=== PATIENT | female | born 1945 | race Caucasian/White ===

== ENCOUNTER 2017-09-21 16:09 | Emergency (ER) | payer MEDICARE ==
[~2017-09-21] VITALS: Ht 175.3 cm; Wt 68.2 kg
[2017-09-21 16:11] VITALS: Ht 175.3 cm; Wt 68.2 kg
[2017-09-21 16:35] VITALS: BP 174/91
[2017-09-21 16:41] LABS: BASOPHILS 0.6 % (0-2); EOSINOPHILS 4.8 % (0-7); HEMATOCRIT 30.2 % (36.0-48.0); HEMOGLOBIN 10.1 g/dL (12-16); IMMATURE GRANULOCYTES 0.6 % (0-5); LYMPHOCYTES 28.7 % (15-50); MCH 30.6 pg (26.0-34.0); MCHC 33.4 g/dL (31.0-37.0); MCV 91.5 fL (80.0-100.0); MEAN PLATELET VOLUME 9.5 fL (7.4-10.4); MONOCYTES 16.2 % (2-11); NEUTROPHILS 49.1 % (40-80); PLATELET COUNT 118 10x3/uL (130-400); RDW 19.6 % (11.5-14.5)
[2017-09-21 17:00] LABS: APTT 27.6 SECONDS (22.8-39.4); INR 0.99 (0.85-1.17); PROTIME 12.7 SECONDS (11.6-15.0)
[2017-09-21 17:08] LABS: D-DIMER-QUANTITATIVE 8.35 ug/mLFEU (0.20-0.54)
[2017-09-21 17:14] VITALS: BP 158/91
[2017-09-21 17:21] LABS: ALBUMIN 2.9 g/dL (3.4-5.0); ALKALINE PHOSPHATASE 109 U/L (46-116); ALT (SGPT) 21 U/L (10-68); CALC OSMOLALITY 283 mosm/kg (275-300); CALCIUM 7.9 mg/dL (8.5-10.1); CARBON DIOXIDE 27.8 mmol/L (21.0-32.0); CHLORIDE - SERUM 106 mmol/L (98-107); CREATININE - SERUM 1.1 mg/dL (0.6-1.3); GLUCOSE 109 mg/dL (74-106); POTASSIUM - SERUM 3.2 mmol/L (3.5-5.1); PROTEIN - SERUM 6.3 g/dL (6.4-8.2); SODIUM 141 mmol/L (136-145); UREA NITROGEN 17 mg/dL (7-18); eGFR NON AFRICAN AMERICAN 52 mL/min (90-120)
[2017-09-21 17:42] LABS: CKMB 0.5 U/L (0.0-3.6); CREATINE KINASE 51 UL (21-215); MAGNESIUM - SERUM 1.8 mg/dL (1.8-2.4)
[2017-09-21 17:45] LABS: TROPONIN-I < 0.017 ng/mL (0.000-0.060)
[2017-09-21 21:30] VITALS: BP 144/77
[2017-09-21 22:18] VITALS: BP 132/74
== END 2017-09-21 22:18 | disposition left against medical advice (07) ==
LOC: OBSVTIME → D.ER 16:09 → D.EDHOLD 21:44 → OBSVTIME 21:44 → D.EDHOLD 22:18 → D.ER 22:18
PROVIDERS: Family Medicine
DX: R07.9 Chest pain, unspecified (principal); I10 Essential (primary) hypertension; I71.4 Abdominal aortic aneurysm, without rupture

== ENCOUNTER 2018-01-17 12:01 | Emergency (ER) | payer MEDICARE ==
[~2018-01-17] VITALS: Ht 175.3 cm; Wt 74.4 kg
[2018-01-17 12:16] VITALS: Ht 175.3 cm; Wt 74.4 kg
[2018-01-17] MEDS ORDERED: NORVASC5 MG (12:17)
[2018-01-17] MEDS ORDERED: LYRICA50 MG (12:17)
[2018-01-17] MEDS ORDERED: MAXZIDE 75/501 TAB (12:18)
[2018-01-17 13:39] LABS: BASOPHILS 0.4 % (0-2); EOSINOPHILS 2.1 % (0-7); HEMATOCRIT 34.6 % (36.0-48.0); HEMOGLOBIN 11.8 g/dL (12-16); IMMATURE GRANULOCYTES 0.1 % (0-5); LYMPHOCYTES 26.8 % (15-50); MCH 31.2 pg (26.0-34.0); MCHC 34.1 g/dL (31.0-37.0); MCV 91.5 fL (80.0-100.0); MEAN PLATELET VOLUME 9.2 fL (7.4-10.4); MONOCYTES 9.9 % (2-11); NEUTROPHILS 60.7 % (40-80); RBC 3.78 10x6/uL (4.00-5.40); RDW 15.3 % (11.5-14.5); WBC 7.3 10x3/uL (4.8-10.8)
[2018-01-17 13:45] LABS: APPEARANCE CLEAR (CLEAR); BACTERIA FEW /hpf (NONE SEEN); BILIRUBIN NEGATIVE (NEGATIVE); COLOR YELLOW (YELLOW); EPITHELIAL CELLS 0-5 /hpf (0-5); GLUCOSE NEGATIVE (NEGATIVE); KETONE NEGATIVE (NEGATIVE); NITRITE NEGATIVE (NEGATIVE); PROTEIN 3+ mg/dL (NEGATIVE); RED CELLS - URINE 0-5 /hpf (0-5); SPECIFIC GRAVITY 1.015 (1.005-1.020); UROBILINOGEN NORMAL (NORMAL); WHITE CELLS - URINE 0-5 /hpf (0-5)
[2018-01-17 13:48] LABS: PLATELET COUNT 172 10x3/uL (130-400)
[2018-01-17 14:00] LABS: ALBUMIN 3.2 g/dL (3.4-5.0); ANION GAP 12.7 mmol/L (8-16); BILIRUBIN - TOTAL 0.57 mg/dL (0.2-1.3); CALCIUM 8.6 mg/dL (8.5-10.1); CARBON DIOXIDE 25.3 mmol/L (21.0-32.0); PROTEIN - SERUM 7.3 g/dL (6.4-8.2)
[2018-01-17 14:47] VITALS: BP 138/72
== END 2018-01-17 14:48 | disposition home or self-care (01) ==
LOC: D.ER 12:01
PROVIDERS: Family Medicine
DX: G62.9 Polyneuropathy, unspecified (principal); R60.0 Localized edema

== ENCOUNTER 2019-03-05 18:44 | Emergency (ER) | payer MEDICARE, MEDICAID ==
[~2019-03-05] VITALS: Ht 175.3 cm; Wt 81.6 kg
[~2019-03-05 18:44] MED LIST: LYRICA50 MG; MAXZIDE 75/501 TAB; NORVASC5 MG
[2019-03-05 19:18] VITALS: Ht 175.3 cm; Wt 81.6 kg
[2019-03-05 19:44] LABS: APPEARANCE CLEAR (CLEAR); BILIRUBIN NEGATIVE (NEGATIVE); COLOR YELLOW (YELLOW); GLUCOSE NEGATIVE (NEGATIVE); KETONE NEGATIVE (NEGATIVE); NITRITE NEGATIVE (NEGATIVE); PROTEIN 1+ mg/dL (NEGATIVE); SPECIFIC GRAVITY 1.005 (1.005-1.020); UROBILINOGEN NORMAL (NORMAL)
[2019-03-05 20:20] LABS: BASOPHILS 0.3 % (0-2); EOSINOPHILS 2.3 % (0-7); HEMATOCRIT 32.8 % (36.0-48.0); LYMPHOCYTES 21.1 % (15-50); MCH 32.1 pg (26.0-34.0); MCHC 33.5 g/dL (31.0-37.0); MCV 95.6 fL (80.0-100.0); MEAN PLATELET VOLUME 10.3 fL (7.4-10.4); MONOCYTES 10.3 % (2-11); RBC 3.43 10x6/uL (4.00-5.40); RDW 16.5 % (11.5-14.5); WBC 3.9 10x3/uL (4.8-10.8)
[2019-03-05 20:21] LABS: PLATELET COUNT 121 10x3/uL (130-400)
[2019-03-05 20:33] LABS: CALC OSMOLALITY 277 mosm/kg (275-300); CALCIUM 7.6 mg/dL (8.5-10.1); CARBON DIOXIDE 28.5 mmol/L (21.0-32.0); CHLORIDE - SERUM 103 mmol/L (98-107); CREATININE - SERUM 1.1 mg/dL (0.6-1.3); GLUCOSE 125 mg/dL (74-106); POTASSIUM - SERUM 4.2 mmol/L (3.5-5.1); SODIUM 137 mmol/L (136-145); UREA NITROGEN 20 mg/dL (7-18); eGFR NON AFRICAN AMERICAN 52 mL/min (90-120)
[2019-03-05 20:42] LABS: ALBUMIN 2.3 g/dL (3.4-5.0); ALKALINE PHOSPHATASE 117 U/L (46-116); ALT (SGPT) 20 U/L (10-68); AMYLASE - SERUM 19 U/L (25-115); BILIRUBIN - TOTAL 0.69 mg/dL (0.2-1.3)
[2019-03-05 20:43] LABS: LIPASE 47 U/L (73-393); TROPONIN-I < 0.017 ng/mL (0.000-0.060)
[2019-03-05 22:33] LABS: UDS - AMPHET NEGATIVE QUAL (NEGATIVE); UDS - BARB NEGATIVE QUAL (NEGATIVE); UDS - BENZO NEGATIVE QUAL (NEGATIVE); UDS - COCAINE NEGATIVE QUAL (NEGATIVE); UDS - OPIATE POSITIVE QUAL (NEGATIVE); UDS - PCP NEGATIVE QUAL (NEGATIVE); UDS - THC NEGATIVE QUAL (NEGATIVE)
[2019-03-05 23:10] VITALS: BP 155/88
== END 2019-03-05 23:10 | disposition home or self-care (01) ==
LOC: D.ER 18:44
PROVIDERS: Family Medicine
DX: C18.9 Malignant neoplasm of colon, unspecified (principal); Z93.3 Colostomy status; C78.7 Secondary malignant neoplasm of liver and intrahepatic bile duct; N83.201 Unspecified ovarian cyst, right side; I10 Essential (primary) hypertension